=== PATIENT | female | born 1995 | race Caucasian/White ===

== ENCOUNTER 2018-08-23 05:47 | Emergency (ER) | payer OTHER ==
[~2018-08-23] VITALS: Ht 170.2 cm; Wt 86.0 kg
[2018-08-23 05:52] VITALS: BP 126/82; PULSE 73; RESP 22; Ht 170.2 cm; Wt 86.0 kg
[2018-08-23] MEDS ORDERED: ALBUTEROL 0.083% (NEB) 2.5 MG/3 ML AMP HHN STA (06:18)
[2018-08-23] MEDS ORDERED: DEXAMETHASONE 10 MG/ML 1 ML INJ IM ONE (06:30)
[2018-08-23] MEDS ORDERED: IPRATROPIUM (NEB) 0.5 MG/2.5 ML AMP HHN ONE (06:30)
[2018-08-23] MEDS ORDERED: PRED20TA PO (07:17)
[2018-08-23] MEDS ORDERED: ALBU2.5V3 NEB (07:17)
[2018-08-23] MEDS ORDERED: NEBU-27 MC (07:17)
[2018-08-23] MEDS ORDERED: ALBU8.5H8 INH (07:17)
--- NOTE | 2018-08-23 07:54 | ERD ---
ER Documentation Chief Complaint Chief Complaint C/O WORSENING SOB, HX OF ASTHMA, HOME INHALER NOT WORKING, WHEEZING HPI 23-year-old female presenting with shortness of breath and asthma exacerbation times 2 days. Patient states that she has been using her inhaler with no alleviation of symptoms. She describes a dry cough with no fevers. She has a long history of asthma over the last 2 years and she states the symptoms are the same as her previous episodes. Patient denies other medical problems. NKDA. Surgical history . Social history denies ROS All systems reviewed and are negative except as per history of present illness. Medications Home Meds Active Scripts Prednisone* (Prednisone*) 20 Mg Tab, 40 MG PO DAILY for 4 Days, TAB Prov:DEBRA ABDALLA PA-C 08/23/18 Nebulizer (ALTERA NEBULIZER) 1 Each Each, EACH MC, #1 Prov:DEBRA ABDALLA PA-C 08/23/18 Albuterol Sulfate* (Albuterol Sulfate* Neb) 0.083%-3 Ml Neb, 2.5 MG NEB Q4 PRN for SHORTNESS OF BREATH, #30 EA Prov:DEBRA ABDALLA PA-C 08/23/18 Albuterol Sulfate* (Proair HFA*) 8.5 Gm Hfa.aer.ad, 2 PUFF INH Q4, #1 INHALER Prov:DEBRA ABDALLA PA-C 08/23/18 Allergies Allergies: Coded Allergies: No Known Allergy (Unverified , 08/23/18) PMhx/Soc History of Surgery: Yes (c section) Anesthesia Reaction: No Hx Neurological Disorder: No Hx Respiratory Disorders: Yes (asthma) Hx Cardiac Disorders: No Hx Psychiatric Problems: No Hx Miscellaneous Medical Probl: No Hx Alcohol Use: No Hx Substance Use: No Hx Tobacco Use: No Smoking Status: Never smoker FmHx Family History: No diabetes, No coronary disease, No other Physical Exam Vitals Vital Signs Date Temp Pulse Resp B/P (MAP) Pulse Ox O2 O2 Flow FiO2 Time Delivery Rate 08/23/18 86 24 98 21 06:25 08/23/18 98.6 73 22 126/82 96 05:52 (97) Physical Exam GENERAL: The patient is well-appearing, well-nourished, in no acute distress HEENT: Atraumatic. Conjunctivae are pink. Pupils equal, round, and reactive to light. There is no scleral icterus. Tympanic membranes clear bilaterally. Oropharynx clear. NECK: C-spine is soft and supple. There is no meningismus. There is no cervical lymphadenopathy. CHEST: Diffuse wheezing her auscultation. No focal rhonchi. No retractions. HEART: Regular rate and rhythm. No murmurs, clicks, rubs or gallops. Results 24 hrs Current Medications Medications Dose Sig/Nila Start Time Status Last (Trade) Ordered Route PRN Stop Time Admin Dose Reason Admin Albuterol 10 mg ONCE STAT 08/23/18 DC 08/23/18 (Proventil HHN 06:18 06:24 0.083% (Neb)) 08/23/18 06:20 Ipratropium 1 mg ONCE ONCE 08/23/18 DC 08/23/18 [place] HHN 06:30 06:24 (Atrovent 08/23/18 06:31 0.02% (Neb)) 10 mg ONCE ONCE 08/23/18 DC 08/23/18 Dexamethasone IM 06:30 06:41 (Decadron) 08/23/18 06:31 Procedures/MDM ER course: Albuterol Atrovent breathing treatment given ED. IM Decadron given ED. Upon reevaluation patient symptoms dramatically improved. MDM: 23-year-old female presenting with asthma exacerbation. Patient symptoms improved while in the ER after her breathing treatment. I have low suspicion for pneumonia. I have low suspicion for respiratory distress or hypoxia. Patient's vitals are stable. Patient is discharged with stricter precautions and told to follow-up with primary care within 1-2 days for close evaluation. Patient is told symptoms change or worsen to return to the ER. All questions answered discharge Departure Diagnosis: Primary Impression: Asthma Condition: Stable Patient Instructions: Asthma Referrals: [facility] YOU HAVE RECEIVED A MEDICAL SCREENING EXAM AND THE RESULTS INDICATE THAT YOU DO NOT HAVE A CONDITION THAT REQUIRES URGENT TREATMENT IN THE EMERGENCY DEPARTMENT. FURTHER EVALUATION AND TREATMENT OF YOUR CONDITION CAN WAIT UNTIL YOU ARE SEEN IN YOUR DOCTORS OFFICE WITHIN THE NEXT 1-2 DAYS. IT IS YOUR RESPONSIBILITY TO MAKE AN APPOINTMENT FOR FOLOW-UP CARE. IF YOU HAVE A PRIMARY DOCTOR --you should call your primary doctor and schedule an appointment IF YOU DO NOT HAVE A PRIMARY DOCTOR YOU CAN CALL OUR PHYSICIAN REFERRAL HOTLINE AT IF YOU CAN NOT AFFORD TO SEE A PHYSICIAN YOU CAN CHOSE FROM THE FOLLOWING [facility] [address] [facility] [address] [facility] [address] [facility] [address] [facility] [address] [facility]. [facility]. [address] Additional Instructions: FOLLOW UP WITH YOUR PRIMARY CARE PHYSICIAN TOMORROW.Return to this facility if you are not improving as expected. DEBRA ABDALLA PA-C Aug 23, 2018 07:54
== END 2018-08-23 07:23 | disposition home or self-care (01) ==
LOC: FTE 05:47
DX: J45.901 Unspecified asthma with (acute) exacerbation (principal)
CPT/HCPCS: 94644; 96372; J1100; Z7502; Z7610

== ENCOUNTER 2018-09-01 19:59 | Emergency (ER) | payer SELFPAY ==
[~2018-09-01] VITALS: Ht 162.6 cm; Wt 86.5 kg
[~2018-09-01 19:59] MED LIST: ALBU2.5V3 NEB; ALBU8.5H8 INH; NEBU-27 MC; PRED20TA PO
[2018-09-01 20:07] VITALS: BP 127/71; PULSE 105; RESP 24; Ht 162.6 cm; Wt 86.5 kg
== END 2018-09-01 20:25 | disposition left against medical advice (07) ==
LOC: FTE 19:59
DX: Z53.21 Procedure and treatment not carried out due to patient leaving prior to being seen by health care provider (principal)

== ENCOUNTER 2018-10-02 01:18 | Emergency (ER) | payer MEDICAID ==
[~2018-10-02] VITALS: Ht 162.6 cm; Wt 90.9 kg
[2018-10-02 01:22] VITALS: Ht 162.6 cm; Wt 90.9 kg
--- NOTE | 2018-10-02 01:33 | ERD ---
ER Documentation Chief Complaint Chief Complaint ASTHMA EXCERBATION X1DAY HPI 23-year-old female, with history of asthma, presents to the emergency department, complaining of acute exacerbation that started yesterday. The patient denies fever, no chills. Her current treatment include: Pro-air and albuterol nebulized as needed. ROS All systems reviewed and are negative except as per history of present illness. Medications Home Meds Active Scripts Albuterol Sulfate* (Albuterol Sulfate* Neb) 0.083%-3 Ml Neb, 2.5 MG NEB Q4 PRN for SHORTNESS OF BREATH, #30 EA Prov:CRIS ARNETT MD 10/02/18 Prednisone* (Prednisone*) 20 Mg Tab, 60 MG PO DAILY for 4 Days, TAB Prov:CRIS ARNETT MD 10/02/18 Albuterol Sulfate* (Proair HFA*) 8.5 Gm Hfa.aer.ad, 2 PUFF INH Q4, #1 INHALER Prov:CRIS ARNETT MD 10/02/18 Azithromycin* (Zithromax*) 250 Mg Tablet, 250 MG PO .ZPACK DIRECTED, #6 TAB TAKE 500 MG (2 TABS) THE FIRST DAY THEN 250 MG (1 TAB) DAYS 2-5 Prov:CRIS ARNETT MD 10/02/18 Prednisone* (Prednisone*) 20 Mg Tab, 40 MG PO DAILY for 4 Days, TAB Prov:DEBRA ABDALLA PA-C 08/23/18 Nebulizer (ALTERA NEBULIZER) 1 Each Each, EACH , #1 Prov:DEBRA ABDALLA PA-C 08/23/18 Albuterol Sulfate* (Albuterol Sulfate* Neb) 0.083%-3 Ml Neb, 2.5 MG NEB Q4 PRN for SHORTNESS OF BREATH, #30 EA Prov:DEBRA ABDALLA PA-C 08/23/18 Albuterol Sulfate* (Proair HFA*) 8.5 Gm Hfa.aer.ad, 2 PUFF INH Q4, #1 INHALER Prov:DEBRA ABDALLA PA-C 08/23/18 Allergies Allergies: Coded Allergies: No Known Allergy (Unverified , 08/23/18) PMhx/Soc History of Surgery: Yes (c section) Anesthesia Reaction: No Hx Neurological Disorder: No Hx Respiratory Disorders: Yes (asthma) Hx Cardiac Disorders: No Hx Psychiatric Problems: No Hx Miscellaneous Medical Probl: No Hx Alcohol Use: No Hx Substance Use: No Hx Tobacco Use: No FmHx Family History: diabetes; No coronary disease Physical Exam Vitals Vital Signs Date Temp Pulse Resp B/P (MAP) Pulse Ox O2 O2 Flow FiO2 Time Delivery Rate 10/02/18 94 3.0 30 03:37 10/02/18 113 20 94 Nasal 3.0 30 03:34 Cannula 10/02/18 106 26 96 Nasal 3.0 30 02:07 Cannula 10/02/18 98.4 116 32 148/83 95 01:22 (104) Physical Exam Patient alert, oriented, mild respiratory distress with cough. HEAD: Normocephalic, atraumatic. EYES: PERRLA, EOMI, Sclera and conjunctiva appear normal. NOSE: clear rhinorrhea . EARS: Canals clear, tympanic membranes WNL. MOUTH: normal lips and tongue, no oral lesions. THROAT: Erythema of the oropharynx, no tonsillar exudates. NECK: Supple, No lymphadenopathy. Full ROM without pain or tenderness. HEART: RRR, no rubs, murmurs, clicks or gallops. LUNGS: Bilateral inspiratory and expiratory wheezing to auscultation. ABDOMEN: Soft, non-tender without masses or hepatosplenomegaly. EXTREMITIES: No edema bilaterally. BACK: Full ROM, no deformity, normal back exam NEURO: Cranial nerves grossly intact, no motor or sensory deficit SKIN: No rashes, no petechia Results 24 hrs Current Medications Medications Dose Sig/Nila Start Time Status Last (Trade) Ordered Route PRN Stop Time Admin Dose Reason Admin Albuterol 10 mg ONCE STAT 10/02/18 DC 10/02/18 (Proventil INH 01:37 02:06 0.5% (Neb)) 10/02/18 01:41 Ipratropium 1 mg ONCE STAT 10/02/18 DC 10/02/18 [place] INH 01:37 02:06 (Atrovent 10/02/18 01:41 0.02% (Neb)) Prednisone 60 mg ONCE STAT 10/02/18 DC 10/02/18 (Prednisone) PO 01:37 01:43 10/02/18 01:41 Albuterol 10 mg ONCE STAT 10/02/18 DC 10/02/18 (Proventil INH 03:27 03:33 0.5% (Neb)) 10/02/18 03:29 Ipratropium 1 mg ONCE STAT 10/02/18 DC 10/02/18 [place] INH 03:27 03:34 (Atrovent 10/02/18 03:29 0.02% (Neb)) Procedures/MDM At the time of discharge, vital signs stable, no respiratory distress. Differential diagnosis include but not limited to: Respiratory infection bacterial/viral/fungal. Asthma/COPD, pneumonitis, allergies, GERD. Less likely foreign body aspiration, cardiac related, aspiration pneumonia, malignancy. Physical examination and clinical presentation consistent most likely with acute asthma exacerbation with early superimposed bacterial infection. During the ED course the patient remained stable, received a nebulized treatment and steroids in the ED presenting overall improvement of the symptoms, no new complaints. Clinical impression discussed with the patient who agrees with management. The patient is stable to be treated outpatient and will be discharged home. Some side effects of prescribed medications (headache, rash, nausea, vomiting, diarrhea, drowsiness, habituation, bleeding, hypertension, interactions with other medications) were reviewed. The patient was instructed to follow up with the primary care provider in the next 48h. If symptoms persist, worsen or new symptoms develop, then patient should return to the ED immediately. Disclaimer: Inadvertent spelling and grammatical errors are likely due to EHR/dictation software use and do not reflect on the overall quality of patient care. Also, please note that the electronic time recorded on this note does not necessarily reflect the actual time of the patient encou patient's diabetic symptoms have stabilized here in the emergency department and appear appropriate for outpatient management. No evidence at this time of diabetic ketoacidosis, hyperosmolar syndrome, or severe systemic infection. Isnter. Departure Diagnosis: Primary Impression: Asthma with acute exacerbation Condition: Stable Additional Instructions: Thank you very much for allowing us to participate in your care. Your health and safety is our top priority at [facility]. The evaluation in the emergency department has been done to rule out an acute emergency, therefore, chronic conditions like malignancy or other diseases have not been evaluated; therefore, you need to follow up with a primary care provider in the next 48h. If symptoms persist, worsen or new symptoms develop, then patient should return to the ED immediately. Call your primary care doctor TOMORROW for an appointment during the next 2-4 days and bring all the information provided. Have prescriptions filled and follow precisely the directions on the label. If the symptoms get worse and your provider is unavailable, return to the Emergency Department immediately. CRIS ARNETT MD Oct 02, 2018 01:33
[2018-10-02] MEDS ORDERED: IPRATROPIUM (NEB) 0.5 MG/2.5 ML AMP INH STA ×2 (01:37→03:27)
[2018-10-02] MEDS ORDERED: predniSONE 20 MG TAB PO STA (01:37)
[2018-10-02] MEDS ORDERED: ALBUTEROL 0.5% (NEB) 2.5 MG/0.5 ML AMP INH STA ×2 (01:37→03:27)
[2018-10-02] MEDS ORDERED: AZIT250T PO (04:14)
[2018-10-02] MEDS ORDERED: PRED20TA PO (04:14)
[2018-10-02] MEDS ORDERED: ALBU8.5H8 INH (04:14)
[2018-10-02] MEDS ORDERED: ALBU2.5V3 NEB (04:14)
[2018-10-02 05:07] VITALS: BP 135/78; PULSE 114; RESP 21
== END 2018-10-02 05:07 | disposition home or self-care (01) ==
LOC: FTE 01:18
DX: J45.901 Unspecified asthma with (acute) exacerbation (principal); R06.02 Shortness of breath
CPT/HCPCS: 94644; 94645; J7512; Z7502; Z7610

== ENCOUNTER 2018-10-29 20:01 | Emergency (ER) | payer MEDICAID ==
[~2018-10-29] VITALS: Wt 103.6 kg
[~2018-10-29 20:01] MED LIST changes: +AZIT250T PO
[2018-10-29] MEDS ORDERED: IPRATROPIUM (NEB) 0.5 MG/2.5 ML AMP NEB STA (20:13)
[2018-10-29] MEDS ORDERED: ALBUTEROL 0.083% (NEB) 2.5 MG/3 ML AMP NEB STA (20:13)
[2018-10-29] MEDS ORDERED: DEXAMETHASONE 10 MG/ML 1 ML INJ IM STA (20:13)
[2018-10-29] MEDS ORDERED: ALBUTEROL 0.5% (NEB) 2.5 MG/0.5 ML AMP INH STA (21:18)
[2018-10-29] MEDS ORDERED: IPRATROPIUM (NEB) 0.5 MG/2.5 ML AMP HHN ONE (22:00)
[2018-10-29] MEDS ORDERED: ALBU8.5H8 INH (22:42)
[2018-10-29] MEDS ORDERED: PRED20TA PO (22:42)
--- NOTE | 2018-10-29 22:44 | ERD ---
ER Documentation Chief Complaint Chief Complaint cough/sob x 4 days HPI 23-year-old female with history of asthma is here for shortness of breath with asthma exacerbation for the past 4 days. She is been using inhaler at home without any relief. No fever. No nausea or vomiting. ROS All systems reviewed and are negative except as per history of present illness. Medications Home Meds Active Scripts Albuterol Sulfate* (Proair HFA*) 8.5 Gm Hfa.aer.ad, 2 PUFF INH Q4, #1 INHALER Prov:HAMLET WHIPPLE PA-C 10/29/18 Prednisone* (Prednisone*) 20 Mg Tab, 60 MG PO DAILY for 4 Days, TAB Prov:HAMLET WHIPPLE PA-C 10/29/18 Albuterol Sulfate* (Albuterol Sulfate* Neb) 0.083%-3 Ml Neb, 2.5 MG NEB Q4 PRN for SHORTNESS OF BREATH, #30 EA Prov:CRIS ARNETT MD 10/02/18 Prednisone* (Prednisone*) 20 Mg Tab, 60 MG PO DAILY for 4 Days, TAB Prov:CRIS ARNETT MD 10/02/18 Albuterol Sulfate* (Proair HFA*) 8.5 Gm Hfa.aer.ad, 2 PUFF INH Q4, #1 INHALER Prov:CRIS ARNETT MD 10/02/18 Azithromycin* (Zithromax*) 250 Mg Tablet, 250 MG PO .ZPACK DIRECTED, #6 TAB TAKE 500 MG (2 TABS) THE FIRST DAY THEN 250 MG (1 TAB) DAYS 2-5 Prov:CRIS ARNETT MD 10/02/18 Prednisone* (Prednisone*) 20 Mg Tab, 40 MG PO DAILY for 4 Days, TAB Prov:DEBRA ABDALLA PA-C 08/23/18 Nebulizer (ALTERA NEBULIZER) 1 Each Each, EACH , #1 Prov:DEBRA ABDALLA PA-C 08/23/18 Albuterol Sulfate* (Albuterol Sulfate* Neb) 0.083%-3 Ml Neb, 2.5 MG NEB Q4 PRN for SHORTNESS OF BREATH, #30 EA Prov:DEBRA ABDALLA PA-C 08/23/18 Albuterol Sulfate* (Proair HFA*) 8.5 Gm Hfa.aer.ad, 2 PUFF INH Q4, #1 INHALER Prov:DEBRA ABDALLA PA-C 08/23/18 Allergies Allergies: Coded Allergies: No Known Allergy (Unverified , 08/23/18) PMhx/Soc History of Surgery: Yes (c section) Anesthesia Reaction: No Hx Neurological Disorder: No Hx Respiratory Disorders: Yes (asthma) Hx Cardiac Disorders: No Hx Psychiatric Problems: No Hx Miscellaneous Medical Probl: No Hx Alcohol Use: No Hx Substance Use: No Hx Tobacco Use: No Smoking Status: Never smoker FmHx Family History: No diabetes Physical Exam Vitals Vital Signs Date Temp Pulse Resp B/P (MAP) Pulse Ox O2 O2 Flow FiO2 Time Delivery Rate 10/29/18 88 24 96 21 21:50 10/29/18 87 24 94 21 20:40 10/29/18 109 36 93 Room Air 20:22 10/29/18 100.0 110 24 132/72 93 20:08 (92) Physical Exam INITIAL VITAL SIGNS: Reviewed by me GENERAL: Awake, alert and oriented x 4, well appearing, nontoxic, speaking in full sentences. No acute distress HEAD: Atraumatic NECK: Supple. No masses. Full range of motion. No meningismus. No midline tenderness. EYES: EOMI. PERRL. THROAT: No tonilar erythema or edema. No exudates. Uvula midline. No kissing tonsils. RESPIRATORY: Bilateral inspiratory wheezing, speaks in full sentences, tripod position CV: Regular rate and rhythm. No murmurs, rubs, or gallops. Results 24 hrs Current Medications Medications Dose Sig/Nila Start Time Status Last (Trade) Ordered Route PRN Stop Time Admin Dose Reason Admin Albuterol 5 mg ONCE STAT 10/29/18 DC 10/29/18 (Proventil NEB 20:13 20:38 0.083% (Neb)) 10/29/18 20:14 Ipratropium 0.5 mg ONCE STAT 10/29/18 DC 10/29/18 [place] NEB 20:13 20:38 (Atrovent 10/29/18 20:14 0.02% (Neb)) 10 mg ONCE STAT 10/29/18 DC 10/29/18 Dexamethasone IM 20:13 20:22 (Decadron) 10/29/18 20:14 Albuterol 10 mg ONCE STAT 10/29/18 DC 10/29/18 (Proventil INH 21:18 21:50 0.5% (Neb)) 10/29/18 21:19 Ipratropium 1 mg ONCE ONCE 10/29/18 DC 10/29/18 [place] HHN 22:00 21:50 (Atrovent 10/29/18 22:01 0.02% (Neb)) Procedures/MDM This patient is here with asthma exacerbation. She was given Decadron and one breathing treatment and a continuous breathing treatment with significant improvement of her wheezing. She was then discharged with short course of prednisone and albuterol inhaler. Patient counseled regarding my diagnostic impression and care plan. Prior to discharge all questions answered. Pt agrees with treatment plan and understands strict return precautions. Pt is instructed to follow up with primary care provider within 24-48 hours. Precautionary instructions provided including instructions to return to the ER if not improving or for any worsening or changing symptoms or concerns. Departure Diagnosis: Primary Impression: Asthma Condition: Stable Patient Instructions: Asthma, Acute (Adult) Additional Instructions: Call your primary care doctor TOMORROW for an appointment during the next 1-2 days.See the doctor sooner or return here if your condition worsens before your appointment time. HAMLET WHIPPLE PA-C October 29, 2018 22:44
[2018-10-29 23:23] VITALS: BP 130/77; PULSE 115; RESP 20
== END 2018-10-29 23:23 | disposition home or self-care (01) ==
LOC: FTE 20:01
DX: J45.901 Unspecified asthma with (acute) exacerbation (principal)
CPT/HCPCS: 94644; 94664; 96372; J1100; Z7502; Z7610

== ENCOUNTER 2019-01-16 05:05 | Emergency (ER) | payer MEDICAID, OTHER ==
[~2019-01-16] VITALS: Ht 167.6 cm; Wt 91.1 kg
[2019-01-16 05:07] VITALS: BP 114/64; Ht 167.6 cm; Wt 91.1 kg
[2019-01-16] MEDS ORDERED: ALBUTEROL/IPRATROPIUM (NEB) 3 ML AMP HHN STA (05:15)
[2019-01-16] MEDS ORDERED: predniSONE 20 MG TAB PO STA (05:33)
--- NOTE | 2019-01-16 05:38 | ERD ---
ER Documentation Chief Complaint Chief Complaint STATES ASTHMA ATTACK X3 DAYS, WHEEZING NOTED, 15 WEEKS HPI This is a 23-year-old female patient who presents emergency room with complaint of wheezing for the last hour. Patient states she has history of asthma which is typically controlled with her albuterol inhalers. Denies exposure to any triggers, fevers, recent illness. Patient is 15 weeks . Denies any pelvic cramping, vaginal bleeding, no dysuria, no chest pain. Mild increased work of breathing, no respiratory distress upon evaluation. ROS All systems reviewed and are negative except as per history of present illness. Medications Home Meds Active Scripts Prednisone* (Prednisone*) 20 Mg Tab, 40 MG PO DAILY for 5 Days, TAB Prov:ALISIA VELA NP 01/16/19 Albuterol Sulfate* (Proair HFA*) 8.5 Gm Hfa.aer.ad, 2 PUFF INH Q4, #1 INHALER Prov:HAMLET WHIPPLE PA-C 10/29/18 Prednisone* (Prednisone*) 20 Mg Tab, 60 MG PO DAILY for 4 Days, TAB Prov:HAMLET WHIPPLE PA-C 10/29/18 Albuterol Sulfate* (Albuterol Sulfate* Neb) 0.083%-3 Ml Neb, 2.5 MG NEB Q4 PRN for SHORTNESS OF BREATH, #30 EA Prov:CRIS ARNETT MD 10/02/18 Prednisone* (Prednisone*) 20 Mg Tab, 60 MG PO DAILY for 4 Days, TAB Prov:CRIS ARNETT MD 10/02/18 Albuterol Sulfate* (Proair HFA*) 8.5 Gm Hfa.aer.ad, 2 PUFF INH Q4, #1 INHALER Prov:CRIS ARNETT MD 10/02/18 Azithromycin* (Zithromax*) 250 Mg Tablet, 250 MG PO .CHEVY DIRECTED, #6 TAB TAKE 500 MG (2 TABS) THE FIRST DAY THEN 250 MG (1 TAB) DAYS 2-5 Prov:CRIS ARNETT MD 10/02/18 Prednisone* (Prednisone*) 20 Mg Tab, 40 MG PO DAILY for 4 Days, TAB Prov:DEBRA ABDALLA PA-C 08/23/18 Nebulizer (ALTERA NEBULIZER) 1 Each Each, EACH , #1 Prov:DEBRA ABDALLA PA-C 08/23/18 Albuterol Sulfate* (Albuterol Sulfate* Neb) 0.083%-3 Ml Neb, 2.5 MG NEB Q4 PRN for SHORTNESS OF BREATH, #30 EA Prov:DEBRA ABDALLA PA-C 08/23/18 Albuterol Sulfate* (Proair HFA*) 8.5 Gm Hfa.aer.ad, 2 PUFF INH Q4, #1 INHALER Prov:DEBRA ABDALLA PA-C 08/23/18 Allergies Allergies: Coded Allergies: No Known Allergy (Unverified , 08/23/18) PMhx/Soc History of Surgery: Yes (c section) Anesthesia Reaction: No Hx Neurological Disorder: No Hx Respiratory Disorders: Yes (asthma) Hx Cardiac Disorders: No Hx Psychiatric Problems: No Hx Miscellaneous Medical Probl: No Hx Alcohol Use: No Hx Substance Use: No Hx Tobacco Use: No FmHx Family History: No diabetes, No coronary disease, No other Physical Exam Vitals Vital Signs Date Temp Pulse Resp B/P (MAP) Pulse Ox O2 O2 Flow FiO2 Time Delivery Rate 01/16/19 96 20 100 21 06:16 01/16/19 88 20 99 Room Air 05:44 01/16/19 103 22 98 21 05:29 01/16/19 98.5 110 24 114/64 98 05:07 (81) Physical Exam Const: No acute distress Head: Atraumatic Eyes: Normal Conjunctiva, PERRL ENT: Normal External Ears, Nose and Mouth. Pharynx pink, moist, no lesions, no exudate, no petechiae, no drooling Neck: Full range of motion. No meningismus. No lymphadenopathy Resp: Clear to auscultation bilaterally, equal chest rise, diffuse wheezing, stridor Cardio: Regular rate and rhythm, no murmurs Abd: Soft, non tender, non distended. Normal bowel sounds Skin: No petechiae or rashes, bruising or petechiae Back: No midline or flank tenderness, CVT Ext: No cyanosis, or edema Neur: Awake and alert, CN II through XII intact, clear speech, steady gait Psych: Normal Mood and Affect Results 24 hrs Current Medications Medications Dose Sig/Nila Start Time Status Last (Trade) Ordered Route PRN Stop Time Admin Dose Reason Admin Albuterol/ 3 ml ONCE STAT 01/16/19 DC 01/16/19 [place] HHN 05:15 05:28 (Duoneb) 01/16/19 05:23 Prednisone 60 mg ONCE STAT 01/16/19 DC 01/16/19 (Prednisone) PO 05:33 05:41 01/16/19 05:38 Albuterol 2.5 mg ONCE STAT 01/16/19 DC 01/16/19 (Proventil NEB 06:02 06:16 0.083% (Neb)) 01/16/19 06:09 Procedures/MDM PROCEDURES/MDM -Medications: Albuterol, prednisone Patient tolerated medication well with no adverse reactions. Patient reported improvement in breathing. MDM: Is a 23-year-old female patient who presents emergency room with wheezing starting today although she says she has been using her inhaler more over the last 3 days. Denies fevers, illness, smoking, or environmental triggers. States it is worse when she runs and plays with her toddler. She is also . She does not complain of any vaginal pain or bleeding, or cramping. She presents with dry cough and wheezing suggestive of asthma exacerbation. Oxygen saturation remains >95%. She was treated in the standard manner with albuterol and prednisone. At the time of discharge the patient looked well with normal vital signs, normal work of breathing, adequate oxygenation. Due to lack of fever, productive cough, or other symptoms, there is low suspicion for her symptoms having a bacterial cause and therefore no antibiotic was prescribed. Low suspicion for pneumonia, malignancy, sepsis, PE, pneumothorax, FB aspiration, or COPD. The patient has been instructed on completing course of prednisone, using her albuterol as necessary, red flag signs and symptoms of ineffective rescue treatment, avoiding triggers, and following up with OB as soon as possible to discuss possibly adding controller medication. DISPOSITION and PLAN: RX: Prednisone, patient states she has new prescription for albuterol at home The patient has been discharge home to follow-up with community physician. Departure Diagnosis: Primary Impression: Asthma with acute exacerbation Asthma severity: moderate Asthma persistence: persistent Qualified Codes: J45.41 - Moderate persistent asthma with (acute) exacerbation Condition: Stable ALISIA VELA NP Jan 16, 2019 05:38
[2019-01-16 05:44] VITALS: PULSE 88; RESP 20
[2019-01-16] MEDS ORDERED: ALBUTEROL 0.083% (NEB) 2.5 MG/3 ML AMP NEB STA (06:02)
== END 2019-01-16 06:35 | disposition home or self-care (01) ==
LOC: FTE 05:05
DX: O99.52 Diseases of the respiratory system complicating childbirth (principal); J45.41 Moderate persistent asthma with (acute) exacerbation; Z3A.15 15 weeks gestation of pregnancy
CPT/HCPCS: 94640; 94664; J7512; Z7502; Z7610